=== PATIENT | male | born 1980 ===

== ENCOUNTER 2016-12-11 07:41 | Observation (INO) | payer OTHER, SELFPAY ==
[2016-12-11 07:44] VITALS: BMI 29.5
[2016-12-11 07:46] VITALS: BP 123/76; PULSE 70; RESP 18; TEMP 98.3; O2SAT 98
[2016-12-11] MEDS ORDERED: Sodium Chloride 0.9% 1,000 ML IV SCH (08:15)
[2016-12-11 08:35] LABS: BASO % 0.6 % (0.0-2.0); EOS # 0.1 K/uL (0.0-0.7); HEMATOCRIT 41.4 % (35.0-51.0); LYMPH # 1.3 K/uL (1.0-4.3); LYMPH % 21.5 % (20.0-40.0); MEAN CORPUSCULAR HEMOGLOBIN 29.9 pg (27.0-31.0); MEAN PLATELET VOLUME 8.3 fl (7.2-11.7); MONO # 0.5 K/uL (0.0-0.8); MONO % 9.4 % (0.0-10.0); NEUT # 3.9 K/uL (1.8-7.0); NEUT % 66.5 % (50.0-75.0); NRBC % 0.1 % (0.0-0.0); RED CELL DISTRIBUTION WIDTH 13.8 % (11.5-14.5); WHITE BLOOD COUNT 5.8 K/uL (4.8-10.8)
[2016-12-11 08:38] LABS: RBC URINE 3 /hpf (0-3); URINE BACTERIA RARE (<OCC); URINE BILIRUBIN NEGATIVE (NEGATIVE); URINE BLOOD NEGATIVE (NEGATIVE); URINE COLOR YELLOW (YELLOW); URINE GLUCOSE (UA) NEG (Normal); URINE KETONE NEGATIVE (NEGATIVE); URINE LEUKOCYTE ESTERASE NEG Leu/uL (Negative); URINE PROTEIN NEGATIVE (NEGATIVE); URINE UROBILINOGEN 0.2-1.0 mg/dL (0.2-1.0); WBC URINE 1 /hpf (0-5)
--- NOTE | 2016-12-11 08:55 | ED PDOC ---
HPI: Abdomen Time Seen by Provider: 12/11/16 08:04 Chief Complaint (Nursing): Abdominal Pain Chief Complaint (Provider): Abdominal Pain History Per: Patient History/Exam Limitations: no limitations Onset/Duration Of Symptoms: Days (x3 days) Current Symptoms Are (Timing): Still Present Additional Complaint(s): Pt is a 36 y/o male presents to the emergency department with a complaint of constant LUQ abdominal pain x3 days. Describes pain as a "grabbing/pinching" sensation, 6/10, that worsens with movement. Reports this is the first time experiencing these symptoms. Denies taking medications for the relief of pain, heavy lifting, radiation of pain, nausea, vomiting, or diarrhea. PMD: None . Past Medical History Reviewed: Historical Data, Nursing Documentation, Vital Signs Vital Signs: Last Vital Signs Temp 98.3 F 12/11/16 07:44 Pulse 70 12/11/16 07:44 Resp 18 12/11/16 07:44 BP 123/76 12/11/16 07:44 Pulse Ox 98 12/11/16 14:36 - Surgical History Surgical History: No Surg Hx - Family History Family History: States: No Known Family Hx - Social History Current smoker - smoking cessation education provided: No Ex-Smoker (has not smoked in the last 12 months): No Alcohol: None Drugs: Denies - Immunization History Hx Tetanus Toxoid Vaccination: No Hx Influenza Vaccination: No Hx Pneumococcal Vaccination: No - Home Medications Home Medications: Ambulatory Orders Medication Instructions Recorded Ranitidine HCl [Zantac] 1 tab PO BID #30 tablet 12/11/16 - Allergies Allergies/Adverse Reactions: Allergies Allergy/AdvReac Type Severity Reaction Status Date / Time No Known Allergies Allergy Verified 09/09/15 20:48 Review of Systems ROS Statement: Except As Marked, All Systems Reviewed And Found Negative Constitutional: Negative for: Other (heavy lifting) Gastrointestinal: Positive for: Abdominal Pain (Left upper region). Negative for: Nausea, Vomiting, Diarrhea Physical Exam - Reviewed Nursing Documentation Reviewed: Yes Vital Signs Reviewed: Yes - Physical Exam Appears: Positive for: Non-toxic, No Acute Distress Head Exam: Positive for: ATRAUMATIC, NORMOCEPHALIC Skin: Positive for: Normal Color, Warm, Dry Eye Exam: Positive for: Normal appearance Neck: Positive for: Normal, Supple Cardiovascular/Chest: Positive for: Regular Rate, Rhythm. Negative for: Murmur Respiratory: Positive for: Normal Breath Sounds. Negative for: Accessory Muscle Use, Respiratory Distress Gastrointestinal/Abdominal: Positive for: Soft, Tenderness (Left upper quadrant) . Negative for: Normal Exam, Guarding, Rebound Back: Positive for: Normal Inspection Rectal: Positive for: Deferred Extremity: Positive for: Normal ROM Neurologic/Psych: Positive for: Alert, Oriented. Negative for: Motor/Sensory Deficits - Laboratory Results Result Diagrams: 12/11/16 08:27 12/11/16 08:27 - ECG O2 Sat by Pulse Oximetry: 98 (RA) Pulse Ox Interpretation: Normal Medical Decision Making Medical Decision Making: Time: 08:04 Initial impression: Undifferentiated abdominal pain; will check labs Initial plan: --CMP --Lipase --Pepcid 20 mg IVP --Sodium Chloride 250 mls/hr IV --Reevaluation Time: 09:43 --Abd Pelvis PO & IV Contrast CT Scan Time: 10:19 --Admitted to hospital routine: On ED Observation for Undifferentiated abdominal pain. Scribe Attestation: Documented by Kimberly Davenport, acting as a scribe for Steven Suarez MD. Provider Scribe Attestation: All medical record entries made by the Scribe were at my direction and personally dictated by me. I have reviewed the chart and agree that the record accurately reflects my personal performance of the history, physical exam, medical decision making, and the department course for this patient. I have also personally directed, reviewed, and agree with the discharge instructions and disposition. ED OBSERVATION Date of observation admission: 12/11/16 Time of observation admission: 10:20 - Observation admission statement Patient is being placed in observation because:: Pt is still symptomatic - Goals of Observation Goals of observation are:: Improvement of symptoms - Progress Note Progress Note: 12/11/16 11:49 --Patient ingesting IV contrast patiently and pending for CT Scan. 12/11/16 13:19 --Patient ingesting IV contrast patiently and pending for CT Scan. 12/11/16 14:08 --Abdomen CT signed FINDINGS: LOWER THORAX: No infiltrate. Mild mosaic attenuation the posterior lung base bilaterally, nonspecific. Possibly due to air trapping. Small thick walled blood or pneumatoceles at right cardiophrenic angle. Uncertain significance. LIVER: Diffuse fatty infiltration. No mass. No biliary dilatation. Smooth contour. GALLBLADDER AND BILE DUCTS: Unremarkable. PANCREAS: Unremarkable. No gross lesion or ductal dilatation. SPLEEN: Unremarkable. ADRENALS: Unremarkable. No mass. KIDNEYS AND URETERS: Unremarkable. No hydronephrosis. No solid mass. VASCULATURE: No evidence of abdominal aortic aneurysm. There are varices noted perigastric and in for gastric and in the left upper quadrant of the abdomen. Likely portal hypertension. Please note that the portal vein is patent. BOWEL: Unremarkable. No obstruction. No gross mural thickening. APPENDIX: Not identified. No secondary findings to suggest acute appendicitis. The PERITONEUM: Unremarkable. No free fluid. No free air. LYMPH NODES: Unremarkable. No enlarged lymph nodes. BLADDER: Unremarkable. REPRODUCTIVE: Normal prostate BONES: No acute fracture. OTHER FINDINGS: None. IMPRESSION: No evidence of bowel obstruction or diverticulitis. Fatty liver. Multifocal varices indicating probable portal hypertension. Patent portal vein. No additional abnormality. 12/11/16 14:31 Upon provider reevaluation patient is feeling better, is medically stable, and requires no further treatment in the ED at this time. Patient will be discharged home with Rx for Zantac. Counseling was provided and all questions were answered regarding diagnosis and need for follow up with primary care doctor. There is agreement to discharge plan. Return if symptoms persist or worsen. Clinical Impression: Abdominal Pain Disposition - Clinical Impression Clinical Impression: Abdominal pain - Patient ED Disposition Is Patient to be Admitted: No Counseled Patient/Family Regarding: Studies Performed, Diagnosis, Rx Given - Disposition Disposition: Routine/Home Disposition Time: 14:31 Condition: GOOD - POA Present On Arrival: None
[2016-12-11 09:03] LABS: ALB/GLOB RATIO 1.4 (1.0-2.1); ALKALINE PHOSPHATASE 74 U/L (38-126); ALT/SGPT 45 U/L (21-72); AST/SGOT 24 U/L (17-59); BILIRUBIN,TOTAL 0.9 mg/dl (0.2-1.3); BLOOD UREA NITROGEN 15 mg/dl (9-20); CARBON DIOXIDE 26 mmol/L (22-30); CHLORIDE 106 mmol/L (98-107); GFR AFRICAN-AMERICAN > 60; GLUCOSE,RANDOM 92 mg/dL (75-110); LIPASE 44 U/L (23-300); POTASSIUM 3.6 MMOL/L (3.6-5.0); SODIUM 142 mmol/l (132-148)
[2016-12-11] MEDS ORDERED: Iohexol 240 (50 ml) PO ONE (09:42)
[2016-12-11] MEDS ORDERED: Iohexol 240 (50 ml) ONE (10:36)
[2016-12-11] MEDS ORDERED: Iohexol 300 100 ML IJ ONE (13:37)
--- NOTE | 2016-12-11 14:09 | CT ---
PROCEDURE: CT Abdomen and Pelvis with contrast HISTORY: LUQ abdominal pain COMPARISON: None. TECHNIQUE: Contrast dose: 100 mL Omnipaque 300 Radiation dose: Total exam DLP = 936.17 mGy-cm. This CT exam was performed using one or more of the following dose reduction techniques: Automated exposure control, adjustment of the mA and/or kV according to patient size, and/or use of iterative reconstruction technique. FINDINGS: LOWER THORAX: No infiltrate. Mild mosaic attenuation the posterior lung base bilaterally, nonspecific. Possibly due to air trapping. Small thick walled blood or pneumatoceles at right cardiophrenic angle. Uncertain significance. LIVER: Diffuse fatty infiltration. No mass. No biliary dilatation. Smooth contour. GALLBLADDER AND BILE DUCTS: Unremarkable. PANCREAS: Unremarkable. No gross lesion or ductal dilatation. SPLEEN: Unremarkable. ADRENALS: Unremarkable. No mass. KIDNEYS AND URETERS: Unremarkable. No hydronephrosis. No solid mass. VASCULATURE: No evidence of abdominal aortic aneurysm. There are varices noted perigastric and in for gastric and in the left upper quadrant of the abdomen. Likely portal hypertension. Please note that the portal vein is patent. BOWEL: Unremarkable. No obstruction. No gross mural thickening. APPENDIX: Not identified. No secondary findings to suggest acute appendicitis. The PERITONEUM: Unremarkable. No free fluid. No free air. LYMPH NODES: Unremarkable. No enlarged lymph nodes. BLADDER: Unremarkable. REPRODUCTIVE: Normal prostate BONES: No acute fracture. OTHER FINDINGS: None. IMPRESSION: No evidence of bowel obstruction or diverticulitis. Fatty liver. Multifocal varices indicating probable portal hypertension. Patent portal vein. No additional abnormality.
== END 2016-12-11 14:41 | disposition home or self-care (01) ==
LOC: H.ER 07:41 → H.EROBSV 10:19
PROVIDERS: ADMIT Emergency Medicine; ATTEND Emergency Medicine
DX: R10.9 Unspecified abdominal pain (principal); K76.0 Fatty (change of) liver, not elsewhere classified; K76.6 Portal hypertension
CPT/HCPCS: 74177; 80053; 81003; 83690; 85025; 96361; 96374; 99283; G0378; J7040; Q9966; Q9967